=== PATIENT | female | born 1980 | race Caucasian/White ===

== ENCOUNTER 2021-09-30 14:39 | Day surgery (SDC) | payer OTHER ==
[2021-09-30] MEDS ORDERED: XYLOCAINE-MPF 1% 5ML SDV IJ ONE (14:40)
[2021-09-30] MEDS ORDERED: Decadron 4 MG INJ IV ONE (14:40)
[2021-09-30] MEDS ORDERED: Sodium Chloride 0.9(Preservative Free) 10 ML IJ ONE (14:40)
[2021-09-30] MEDS ORDERED: VERSED 5 MG/5 ML ONE (18:17)
[2021-09-30] MEDS ORDERED: Lactated Ringers 1,000 ML IV ONE (19:29)
--- NOTE | 2021-09-30 21:33 | XRAY ---
Indication: Cervical TONEY Intraoperative fluoroscopy provided for 26 seconds. 2 digital spot image submitted for interpretation demonstrates midline posterior needle tip projecting posterior to cervical thoracic junction. Small amount of contrast injected for needle tip placement. Correlate with intraoperative findings/report.
--- NOTE | 2021-10-01 09:13 | XRAY ---
26 seconds of fluoroscopy was used in surgery for a cervical TONEY.
== END 2021-09-30 18:33 | disposition home or self-care (01) ==
LOC: SDC-PAIN 14:39
PROVIDERS: ATTEND Psychiatry & Neurology Pain Medicine
DX: M54.12 Radiculopathy, cervical region (principal); Z79.899 Other long term (current) drug therapy
CPT/HCPCS: 62321; 72040; 77003; 81025; J1100; J2250; Q9966